=== PATIENT | male | born 1945 | race Caucasian/White ===

== ENCOUNTER → 2023-10-19 11:10 | Outpatient (REF) | payer MEDICARE, BC, SELFPAY ==
[2023-10-19 13:13] LABS: PSA, Total - Diagnostic 2.69 ng/ml (0.0-4.0)
== END ==
LOC: HWLAB 11:10
PROVIDERS: ATTENDING PHYSICIAN Specialist; FAMILY PHYSICIAN Internal Medicine
DX: N40.2 Nodular prostate without lower urinary tract symptoms (principal)
CPT/HCPCS: 36415; 84153

== ENCOUNTER → 2023-11-03 11:23 | Outpatient (REF) | payer MEDICARE, BC, SELFPAY | LOC: CLAB 11:23 | PROVIDERS: ATTENDING PHYSICIAN Specialist | DX: N40.2 Nodular prostate without lower urinary tract symptoms (principal) | CPT/HCPCS: 88305; 88344 ==

== ENCOUNTER → 2023-12-24 08:27 | Outpatient (REF) | payer MEDICARE, BC, SELFPAY | LOC: MRI 3T 08:27 | PROVIDERS: ATTENDING PHYSICIAN Radiology Radiation Oncology; FAMILY PHYSICIAN Internal Medicine | DX: C61 Malignant neoplasm of prostate (principal) | CPT/HCPCS: 72197; A9575 ==

== ENCOUNTER → 2023-12-30 09:28 | Outpatient (REF) | payer MEDICARE, BC, SELFPAY | LOC: HWRAD 09:28 | PROVIDERS: ATTENDING PHYSICIAN Radiology Radiation Oncology; FAMILY PHYSICIAN Internal Medicine | DX: C61 Malignant neoplasm of prostate (principal); M81.0 Age-related osteoporosis without current pathological fracture | CPT/HCPCS: 77080 ==

== ENCOUNTER → 2024-02-02 09:05 | Outpatient (REF) | payer MEDICARE, BC, SELFPAY ==
[2024-02-02 12:09] LABS: % Basophils 0.4 % (0-2); % Eosinophils 2.3 % (0-6); % Immature Granulocytes 0.2 % (0-0.5); % Lymphocytes 29.1 % (20.5-51.1); % Monocytes 11.1 % (1.7-9.3); % Neutrophils 56.9 % (42.2-75.2); Absolute Eosinophils 0.1 10^3/uL (0-0.7); Absolute Lymphocytes 1.6 10^3/uL (1.2-3.4); Absolute Monocytes 0.6 10^3/uL (0.1-0.6); Hematocrit 40.3 % (39.0-52.0); Hemoglobin 14.5 g/dL (13.0-18.0); Mean Corpuscular Hgb 32.3 pg (27.0-31.0); Mean Corpuscular Volume 89.8 fL (80.0-94.0); Mean Platelet Volume 10.2 fL (7.4-10.4); Nucleated Red Blood Cells % 0 % (-); Platelet Count 240 10^3/uL (130-400); Red Blood Cell Count 4.49 10^6/uL (4.70-6.10); White Blood Cell Count 5.3 10^3/uL (4.8-10.8)
[2024-02-02 12:27] LABS: ALT (SGPT) 24 U/L (0-50); AST (SGOT) 27 U/L (17-59); Albumin 4.7 g/dl (3.5-5.0); Alkaline Phosphatase 89 U/L (38-126); Blood Urea Nitrogen 13 mg/dl (9-20); Calcium 9.8 mg/dl (8.4-10.2); Carbon Dioxide 29 mmol/L (22-30); Chloride 102 mmol/L (98-107); Glucose 98 mg/dl (70-99); Potassium 3.8 mmol/L (3.5-5.1); Sodium 139 mmol/L (135-145); Total Bilirubin 0.6 mg/dl (0.2-1.3); eGFR > 60.00
[2024-02-02 12:42] LABS: Vitamin D, 25-OH*** 57.2 ng/mL (30-80)
[2024-02-02 12:56] LABS: TSH Reflex To Free T4 1.36 uIU/ml (0.47-4.68)
[2024-02-03 19:29] LABS: Hepatitis B Surface Antigen Negative (Negative)
[2024-02-03 19:48] LABS: Hepatitis B Core Ab, Total Reactive (Negative); Hepatitis B Surface Antibody Negative; Hepatitis C Antibody Negative (Negative)
[2024-02-03 19:54] LABS: Hepatitis A Antibody, Total Positive (Negative)
== END ==
LOC: HWLAB 09:05
PROVIDERS: ATTENDING PHYSICIAN Internal Medicine Gastroenterology; FAMILY PHYSICIAN Internal Medicine; REFERRING PHYSICIAN Internal Medicine Endocrinology, Diabetes & Metabolism
DX: K76.0 Fatty (change of) liver, not elsewhere classified (principal); E78.5 Hyperlipidemia, unspecified; I10 Essential (primary) hypertension; R13.10 Dysphagia, unspecified; Z00.00 Encounter for general adult medical examination without abnormal findings; Z23 Encounter for immunization; K21.9 Gastro-esophageal reflux disease without esophagitis; E03.9 Hypothyroidism, unspecified; E04.1 Nontoxic single thyroid nodule; G47.00 Insomnia, unspecified; E06.3 Autoimmune thyroiditis; E55.9 Vitamin D deficiency, unspecified; E78.00 Pure hypercholesterolemia, unspecified
CPT/HCPCS: 36415; 80053; 82306; 84443; 85025; 86704; 86706; 86708; 86803; 87340

== ENCOUNTER → 2024-02-16 11:01 | Outpatient (REF) | payer MEDICARE, BC, SELFPAY ==
[2024-02-16 16:04] LABS: % Basophils 0.3 % (0-2); % Eosinophils 1.7 % (0-6); % Immature Granulocytes 0.3 % (0-0.5); % Lymphocytes 27.4 % (20.5-51.1); % Monocytes 10.2 % (1.7-9.3); % Neutrophils 60.1 % (42.2-75.2); Absolute Eosinophils 0.1 10^3/uL (0-0.7); Absolute Lymphocytes 1.6 10^3/uL (1.2-3.4); Absolute Monocytes 0.6 10^3/uL (0.1-0.6); Absolute Neutrophils 3.5 10^3/uL (1.4-6.5); Hematocrit 36.5 % (39.0-52.0); Hemoglobin 13.3 g/dL (13.0-18.0); Mean Corp Hgb Conc. 36.4 g/dL (33.0-37.0); Mean Corpuscular Hgb 32.8 pg (27.0-31.0); Mean Corpuscular Volume 90.1 fL (80.0-94.0); Mean Platelet Volume 10.6 fL (7.4-10.4); Nucleated Red Blood Cells % 0 % (-); Platelet Count 242 10^3/uL (130-400); Red Blood Cell Count 4.05 10^6/uL (4.70-6.10); White Blood Cell Count 5.9 10^3/uL (4.8-10.8)
[2024-02-16 16:10] LABS: Magnesium 2.1 mg/dl (1.6-2.3)
[2024-02-18 16:12] LABS: CTx 488 pg/mL (118-776)
== END ==
LOC: HWLAB 11:01
PROVIDERS: ATTENDING PHYSICIAN Internal Medicine Endocrinology, Diabetes & Metabolism; FAMILY PHYSICIAN Internal Medicine
DX: E04.1 Nontoxic single thyroid nodule (principal); E03.9 Hypothyroidism, unspecified; E06.3 Autoimmune thyroiditis; E55.9 Vitamin D deficiency, unspecified; E78.00 Pure hypercholesterolemia, unspecified; I10 Essential (primary) hypertension; M81.0 Age-related osteoporosis without current pathological fracture; C61 Malignant neoplasm of prostate
CPT/HCPCS: 36415; 82523; 83735; 84155; 84165; 85025

== ENCOUNTER → 2024-03-13 06:19 | Day surgery (SDC) | payer MEDICARE, BC, SELFPAY | LOC: GI 06:19 | PROVIDERS: ATTENDING PHYSICIAN Internal Medicine Gastroenterology; FAMILY PHYSICIAN Internal Medicine | DX: R12 Heartburn (principal); K29.70 Gastritis, unspecified, without bleeding; K21.00 Gastro-esophageal reflux disease with esophagitis, without bleeding | CPT/HCPCS: 43239; 88305; 88312; 88342 ==

== ENCOUNTER → 2024-06-19 11:45 | Outpatient (REF) | payer MEDICARE, BC, SELFPAY ==
[2024-06-19 15:36] LABS: Urine Albumin Negative (Neg - Trace); Urine Bilirubin Negative (Negative); Urine Character Clear (Clear); Urine Color Yellow; Urine Glucose Negative (Negative); Urine Ketone Negative (Negative); Urine Leukocyte Negative (Negative); Urine Nitrite Negative (Negative); Urine Occult Blood Negative (Negative); Urine Specific Gravity 1.015 (<1.030); Urine Urobilinogen Negative (Neg - 1+)
== END ==
LOC: HWLAB 11:45
PROVIDERS: ATTENDING PHYSICIAN Physician Assistant; FAMILY PHYSICIAN Internal Medicine
DX: C61 Malignant neoplasm of prostate (principal)
CPT/HCPCS: 36415; 81003; 84153

== ENCOUNTER 2024-07-05 13:57 | Emergency (ER) | payer MEDICARE, BC, SELFPAY ==
[2024-07-05 13:58] VITALS: BP 90/60
--- NOTE | 2024-07-05 14:04 | ED.GENMED ---
ED Provider Triage
<Buddy Camarillo PA-C - Last Filed: 07/05/24 14:11>
-
Patient seen by provider in Triage?: Seen in Triage
79-year-old male presents via EMS from home. He took 2 500mg tablets of Cipro for a preprocedure tooth extraction. Shortly after that he started vomiting and having diarrhea. He notes he is feeling very lightheaded he denies abdominal pain or
chest pain. He did not receive a tooth extraction. He states he feels very weak
Patient is slightly pale and hypotensive at triage. He is nauseous currently. Unable to obtain temperature at triage. Recommended he go to a room for his hypotension. Labs and fluids ordered as well as Zofran
Patient received a medical screening examination through triage by a healthcare provider. He warrants further assessment
History of Present Illness
<Buddy Camarillo PA-C - Last Filed: 07/05/24 14:11>
General
Chief Complaint: Abdominal Symptoms
Time Seen by Provider: 07/05/24 15:13
<Chad Zamora Jr., PA-C - Last Filed: 07/06/24 08:21>
General
Source: patient and spouse
Exam Limitations: none
Nursing documentation reviewed up to this point in time: agreed with
History of Present Illness
History of Present Illness:
79-year-old male past medical history of hypertension and fatty liver presenting to the emergency department today with concerns of nausea vomiting diarrhea starting earlier today. Took 1 dose of an antibiotic due to upcoming root canal but
otherwise denies any additional potential inciting events. Was feeling some lightheadedness prior to arrival as well. .
Review of Systems
<Chad Zamora Jr., PA-C - Last Filed: 07/06/24 08:21>
Review of Systems
Allergies reviewed?: Yes
All Other Systems: ROS reviewed and negative except as documented in HPI and ROS
Phy Exam
<Chad Zamora Jr., PA-C - Last Filed: 07/06/24 08:21>
Physical Exam
Physical Exam:
GENERAL: Alert , in no apparent distress
EYE: pupils equal and reactive
NECK: Supple, no significant adenopathy.
ENT: o/p clr, mmm.
CARDIAC: Regular rate and rhythm .
LUNGS: Clear breath sounds bilaterally, no acute respiratory distress, no wheezes/rales/rhonchi
ABDOMEN: Soft, without focal tenderness, no r/g, no cvat
NEUROLOGICAL: Alert and oriented, no focal neuro deficits
SKIN: Warm and dry, skin intact.
MUSCULOSKELETAL: No edema, well perfused.
PSYCH: Normal and appropriate interaction.
Course
<Buddy Camarillo PA-C - Last Filed: 07/05/24 14:11>
Orders/Labs/Results
Orders:
Orders
07/05/24 14:03
0.9% Sodium Chloride 1000 ml [Nss] 1,000 ml IV BOLUS
Ondansetron Injectable [Zofran] 4 mg IV NOW STA
07/05/24 14:10
Electrocardiogram (*1) Urgent
Reason for Study: Syncope
EKG- Treatment ONCE
07/05/24 14:40
Ondansetron Injectable [Zofran] 4 mg .ROUTE .STK-MED ONE
07/05/24 14:45
COVID-19 Antigen Urgent
Source: Nasal Swab
Complete Blood Count/With Diff Urgent
Comprehensive Metabolic Panel Urgent
Lipase Urgent
Influenza A+B Rapid Molecular Urgent
LUKAS Source: Nasal Swab
Specimen Description:
07/05/24 16:16
0.9% Sodium Chloride 500 ml [Nss] 500 ml IV BOLUS
Famotidine [Pepcid] 20 mg IV NOW STA
Ondansetron Injectable [Zofran] 4 mg IV NOW STA
Abnormal Lab Results
07/05/24
14:45
WBC 11.7 H 10^3/uL
(4.8-10.8)
MCH 32.1 H pg
(27.0-31.0)
Abs Immat Gran (auto) 0.1 H 10^3/uL
(0-0.05)
Absolute Neuts (auto) 11.2 H 10^3/uL
(1.4-6.5)
Absolute Lymphs (auto) 0.1 L 10^3/uL
(1.2-3.4)
Neutrophils % 95.7 H %
(42.2-75.2)
Lymphocytes % 1.1 L %
(20.5-51.1)
Chloride 97 L mmol/L
(98-107)
Glucose 135 H mg/dl
(70-99)
Total Protein 8.8 H g/dl
(6.3-8.2)
Albumin 5.4 H g/dl
(3.5-5.0)
07/05/24 14:45
07/05/24 14:45
Vital Signs
Initial and Last Documented VS:
Initial Vital Signs
Pulse Resp BP Pulse Ox
61 16 90/60 100
07/05/24 13:58 07/05/24 13:58 07/05/24 13:58 07/05/24 13:58
Last Documented Vital Signs
Temp Pulse Resp BP Pulse Ox
98.8 F 85 23 104/67 98
07/05/24 15:00 07/05/24 17:08 07/05/24 17:08 07/05/24 17:08 07/05/24 17:08
<Chad Zamora Jr., TESS - Last Filed: 07/06/24 08:21>
Orders/Labs/Results
Orders:
Orders
07/05/24 14:03
0.9% Sodium Chloride 1000 ml [Nss] 1,000 ml IV BOLUS
Ondansetron Injectable [Zofran] 4 mg IV NOW STA
07/05/24 14:10
Electrocardiogram (*1) Urgent
Reason for Study: Syncope
EKG- Treatment ONCE
07/05/24 14:40
Ondansetron Injectable [Zofran] 4 mg .ROUTE .STK-MED ONE
07/05/24 14:45
COVID-19 Antigen Urgent
Source: Nasal Swab
Complete Blood Count/With Diff Urgent
Comprehensive Metabolic Panel Urgent
Lipase Urgent
Influenza A+B Rapid Molecular Urgent
LUKAS Source: Nasal Swab
Specimen Description:
07/05/24 16:16
0.9% Sodium Chloride 500 ml [Nss] 500 ml IV BOLUS
Famotidine [Pepcid] 20 mg IV NOW STA
Ondansetron Injectable [Zofran] 4 mg IV NOW STA
Abnormal Lab Results
07/05/24
14:45
WBC 11.7 H 10^3/uL
(4.8-10.8)
MCH 32.1 H pg
(27.0-31.0)
Abs Immat Gran (auto) 0.1 H 10^3/uL
(0-0.05)
Absolute Neuts (auto) 11.2 H 10^3/uL
(1.4-6.5)
Absolute Lymphs (auto) 0.1 L 10^3/uL
(1.2-3.4)
Neutrophils % 95.7 H %
(42.2-75.2)
Lymphocytes % 1.1 L %
(20.5-51.1)
Chloride 97 L mmol/L
(98-107)
Glucose 135 H mg/dl
(70-99)
Total Protein 8.8 H g/dl
(6.3-8.2)
Albumin 5.4 H g/dl
(3.5-5.0)
07/05/24 14:45
07/05/24 14:45
Vital Signs
Initial and Last Documented VS:
Initial Vital Signs
Pulse Resp BP Pulse Ox
61 16 90/60 100
07/05/24 13:58 07/05/24 13:58 07/05/24 13:58 07/05/24 13:58
Last Documented Vital Signs
Temp Pulse Resp BP Pulse Ox
98.8 F 85 23 104/67 98
07/05/24 15:00 07/05/24 17:08 07/05/24 17:08 07/05/24 17:08 07/05/24 17:08
<Janice Combs Day, DRUG AND ALCOHOL COUNSELOR - Last Filed: 07/05/24 21:00>
Orders/Labs/Results
Orders:
Orders
07/05/24 14:03
0.9% Sodium Chloride 1000 ml [Nss] 1,000 ml IV BOLUS
Ondansetron Injectable [Zofran] 4 mg IV NOW STA
07/05/24 14:10
Electrocardiogram (*1) Urgent
Reason for Study: Syncope
EKG- Treatment ONCE
07/05/24 14:40
Ondansetron Injectable [Zofran] 4 mg .ROUTE .STK-MED ONE
07/05/24 14:45
COVID-19 Antigen Urgent
Source: Nasal Swab
Complete Blood Count/With Diff Urgent
Comprehensive Metabolic Panel Urgent
Lipase Urgent
Influenza A+B Rapid Molecular Urgent
LUKAS Source: Nasal Swab
Specimen Description:
07/05/24 16:16
0.9% Sodium Chloride 500 ml [Nss] 500 ml IV BOLUS
Famotidine [Pepcid] 20 mg IV NOW STA
Ondansetron Injectable [Zofran] 4 mg IV NOW STA
Abnormal Lab Results
07/05/24
14:45
WBC 11.7 H 10^3/uL
(4.8-10.8)
MCH 32.1 H pg
(27.0-31.0)
Abs Immat Gran (auto) 0.1 H 10^3/uL
(0-0.05)
Absolute Neuts (auto) 11.2 H 10^3/uL
(1.4-6.5)
Absolute Lymphs (auto) 0.1 L 10^3/uL
(1.2-3.4)
Neutrophils % 95.7 H %
(42.2-75.2)
Lymphocytes % 1.1 L %
(20.5-51.1)
Chloride 97 L mmol/L
(98-107)
Glucose 135 H mg/dl
(70-99)
Total Protein 8.8 H g/dl
(6.3-8.2)
Albumin 5.4 H g/dl
(3.5-5.0)
07/05/24 14:45
07/05/24 14:45
Vital Signs
Initial and Last Documented VS:
Initial Vital Signs
Pulse Resp BP Pulse Ox
61 16 90/60 100
07/05/24 13:58 07/05/24 13:58 07/05/24 13:58 07/05/24 13:58
Last Documented Vital Signs
Temp Pulse Resp BP Pulse Ox
98.8 F 85 23 104/67 98
07/05/24 15:00 07/05/24 17:08 07/05/24 17:08 07/05/24 17:08 07/05/24 17:08
<Chad Zamora Jr., TESS - Last Filed: 07/06/24 08:21>
MDM/Problems Addressed
MDM/Problems Addressed:
79-year-old male past medical history of hypertension and fatty liver presenting to the emergency department today with concerns of nausea vomiting diarrhea starting earlier today. Took 1 dose of an antibiotic due to upcoming root canal but
otherwise denies any additional potential inciting events. Was feeling some lightheadedness prior to arrival as well. On arrival here blood pressure 90/60. Was given fluids and Zofran improvement of blood pressure in 2 100s over 60s. Labs
showing slight white count otherwise no emergent findings on labs. Significant improvement of symptoms after Zofran and fluids.
<Janice Negron DRUG AND ALCOHOL COUNSELOR - Last Filed: 07/05/24 21:00>
MDM/Problems Addressed
MDM/Problems Addressed:
79-year-old male past medical history of hypertension and fatty liver presenting to the emergency department today with concerns of nausea vomiting diarrhea starting earlier today. Took 1 dose of an antibiotic due to upcoming root canal but
otherwise denies any additional potential inciting events. Was feeling some lightheadedness prior to arrival as well. On arrival here blood pressure 90/60. Was given fluids and Zofran improvement of blood pressure in 2 100s over 60s. Labs
showing slight white count otherwise no emergent findings on labs. Significant improvement of symptoms after Zofran and fluids.
6:00 PM:
Patient has been ambulating well, had another bout of diarrhea, he states he feels better but still weak.
He is tolerating juan carlos srini and states he is comfortable going home
He has Imodium at home
<Janice Negron DRUG AND ALCOHOL COUNSELOR - Last Filed: 07/05/24 21:00>
*Critical Care Note
Total Time (30-74mins, 75-104mins- exclusive of procedures): Not Applicable
ED Attending Note
<Buddy Camarillo PA-C - Last Filed: 07/05/24 14:11>
-
Portions of this chart may have been created with voice recognition software.� Occasional wrong word or��sound alike� substitutions may have occurred due to the inherent limitations of voice recognition software.
Discharge Plan
Departure
Patient Disposition: Home (Routine Discharge)
Date of Disposition: 07/05/24
Time of Disposition: 18:17
Patient with high blood pressure during this ER visit?: No
Condition: Good
Covid-19: Not Applicable
Discharge Problem:
Nausea, vomiting and diarrhea
Instructions: Nausea and Vomiting, Adult (DC)
Prescriptions:
New
ondansetron 4 mg tablet,disintegrating
4 mg PO Q6H PRN (Reason: nausea and vomiting) Qty: 7 0RF
Referrals:
Kimberli Sequeira DO [Family Provider] -
Activity Restrictions/Additional Instructions:
You came to the emergency department today with concerns of nausea vomiting diarrhea. This is likely related to a stomach bug. Take the prescribed medication and Imodium over the next few days and return for any worsening or progressive symptoms.
Otherwise try to stay hydrated and rest over the next few days as symptoms will hopefully be improving.
Interventions
Interventions:
*Risk Screen - Suicide Last Done: 07/05/24 13:58
*General Assessment Last Done: 07/05/24 13:58
*Neglect/Abuse Screening Last Done: 07/05/24 14:38
ED- Fall Risk Assessment Last Done: 07/05/24 15:18
*ED COVID-19 Vaccine History Last Done: 07/05/24 13:58
*Nursing Disposition Last Done: 07/05/24 18:26
PE-Sbglyz-Plhiucjpqb Assessment Last Done: 07/05/24 14:38
Discharge Date and Time
Discharge Date/Time: 07/05/24 18:31
Print Language: MOSOTHO
[2024-07-05 14:37] VITALS: BMI 27.2
[2024-07-05] MEDS: ZOFRAN 4 MG IV ×2 (14:41→16:21)
[2024-07-05] MEDS: NSS 1000 IV (14:42)
[2024-07-05 15:00] LABS: % Basophils 0.3 % (0-2); % Eosinophils 0.2 % (0-6); % Immature Granulocytes 0.5 % (0-0.5); % Lymphocytes 1.1 % (20.5-51.1); % Monocytes 2.2 % (1.7-9.3); % Neutrophils 95.7 % (42.2-75.2); Absolute Immature Granulocytes 0.1 10^3/uL (0-0.05); Absolute Lymphocytes 0.1 10^3/uL (1.2-3.4); Absolute Monocytes 0.3 10^3/uL (0.1-0.6); Absolute Neutrophils 11.2 10^3/uL (1.4-6.5); Hematocrit 48.8 % (39.0-52.0); Hemoglobin 17.2 g/dL (13.0-18.0); Mean Corp Hgb Conc. 35.2 g/dL (33.0-37.0); Mean Corpuscular Hgb 32.1 pg (27.0-31.0); Mean Platelet Volume 9.6 fL (7.4-10.4); Nucleated Red Blood Cells % 0 % (-); Platelet Count 282 10^3/uL (130-400); Red Blood Cell Count 5.36 10^6/uL (4.70-6.10); Red Cell Dist. Width 11.9 % (11.5-14.5); White Blood Cell Count 11.7 10^3/uL (4.8-10.8)
[2024-07-05 15:10] LABS: ALT (SGPT) 27 U/L (0-50); AST (SGOT) 32 U/L (17-59); Albumin 5.4 g/dl (3.5-5.0); Alkaline Phosphatase 68 U/L (38-126); Blood Urea Nitrogen 18 mg/dl (9-20); Calcium 9.9 mg/dl (8.4-10.2); Carbon Dioxide 26 mmol/L (22-30); Chloride 97 mmol/L (98-107); Estimated Creatinine Clearance 59 ml/min; Glucose 135 mg/dl (70-99); Lipase 121 U/L (23-300); Potassium 3.6 mmol/L (3.5-5.1); Sodium 139 mmol/L (135-145); Total Bilirubin 0.8 mg/dl (0.2-1.3); Total Protein 8.8 g/dl (6.3-8.2); eGFR > 60.00
[2024-07-05 15:11] LABS: COVID-19 Antigen Negative (Negative)
[2024-07-05] MEDS: PEPCID 20 MG IV (16:21)
[2024-07-05] MEDS: NSS 500 IV (16:22)
[2024-07-05 16:27] VITALS: BP 100/66
[2024-07-05 17:08] VITALS: BP 104/67
== END 2024-07-05 18:31 | disposition home or self-care (01) ==
LOC: EMR 13:57
PROVIDERS: Physician Assistant; EMERGENCY PHYSICIAN Student in an Organized Health Care Education/Training Program; FAMILY PHYSICIAN Internal Medicine
DX: R11.2 Nausea with vomiting, unspecified (principal); R19.7 Diarrhea, unspecified; I10 Essential (primary) hypertension
CPT/HCPCS: 96374; 96375; 96376; 96361; 99284; 80053; 83690; 85025; 87502; 87811; 93005

== ENCOUNTER → 2024-08-14 09:31 | Outpatient (REF) | payer MEDICARE, BC, SELFPAY ==
[2024-08-14 12:20] LABS: % Basophils 0.2 % (0-2); % Eosinophils 2.4 % (0-6); % Immature Granulocytes 0.2 % (0-0.5); % Lymphocytes 28.1 % (20.5-51.1); % Monocytes 9.8 % (1.7-9.3); % Neutrophils 59.3 % (42.2-75.2); Absolute Eosinophils 0.1 10^3/uL (0-0.7); Absolute Lymphocytes 1.5 10^3/uL (1.2-3.4); Absolute Monocytes 0.5 10^3/uL (0.1-0.6); Absolute Neutrophils 3.3 10^3/uL (1.4-6.5); Hematocrit 40.2 % (39.0-52.0); Hemoglobin 13.5 g/dL (13.0-18.0); Mean Corp Hgb Conc. 33.6 g/dL (33.0-37.0); Mean Corpuscular Volume 95.3 fL (80.0-94.0); Mean Platelet Volume 9.7 fL (7.4-10.4); Nucleated Red Blood Cells % 0 % (-); Platelet Count 218 10^3/uL (130-400); Red Blood Cell Count 4.22 10^6/uL (4.70-6.10); Red Cell Dist. Width 12.2 % (11.5-14.5); White Blood Cell Count 5.5 10^3/uL (4.8-10.8)
[2024-08-14 12:49] LABS: ALT (SGPT) 19 U/L (0-50); AST (SGOT) 23 U/L (17-59); Albumin 4.3 g/dl (3.5-5.0); Alkaline Phosphatase 52 U/L (38-126); Blood Urea Nitrogen 13 mg/dl (9-20); Calcium 8.9 mg/dl (8.4-10.2); Carbon Dioxide 34 mmol/L (22-30); Chloride 96 mmol/L (98-107); Glucose 99 mg/dl (70-99); HDL Cholesterol 74 mg/dl; LDL Cholesterol, Calculated 69 mg/dl; Potassium 3.6 mmol/L (3.5-5.1); Sodium 137 mmol/L (135-145); Total Bilirubin 0.5 mg/dl (0.2-1.3); Total Cholesterol 158 mg/dl (50-199); Total Protein 7.2 g/dl (6.3-8.2); Triglyceride 78 mg/dl (10-149); Very Low Density Lipoprotein 15 mg/dl (0-30); eGFR > 60.00
[2024-08-14 13:06] LABS: Vitamin D, 25-OH*** 44.7 ng/mL (30-80)
[2024-08-14 13:33] LABS: TSH Reflex To Free T4 1.25 uIU/ml (0.47-4.68)
== END ==
LOC: HWLAB 09:31
PROVIDERS: ATTENDING PHYSICIAN Internal Medicine Endocrinology, Diabetes & Metabolism; FAMILY PHYSICIAN Internal Medicine
DX: I10 Essential (primary) hypertension (principal); E78.5 Hyperlipidemia, unspecified; R13.10 Dysphagia, unspecified; K21.9 Gastro-esophageal reflux disease without esophagitis; E03.9 Hypothyroidism, unspecified; Z85.819 Personal history of malignant neoplasm of unspecified site of lip, oral cavity, and pharynx; E04.1 Nontoxic single thyroid nodule; E06.3 Autoimmune thyroiditis; E55.9 Vitamin D deficiency, unspecified; E78.00 Pure hypercholesterolemia, unspecified; M81.0 Age-related osteoporosis without current pathological fracture; C61 Malignant neoplasm of prostate
CPT/HCPCS: 36415; 80053; 80061; 82306; 84443; 85025

== ENCOUNTER → 2025-01-02 10:21 | Outpatient (REF) | payer MEDICARE, BC, SELFPAY ==
[2025-01-02 12:55] LABS: PSA, Total - Diagnostic < 0.06 ng/ml (0.0-4.0)
[2025-01-02 12:58] LABS: Testosterone, Total 14.4 ng/dl (72-623)
== END ==
LOC: HWLAB 10:21
PROVIDERS: ATTENDING PHYSICIAN Radiology Radiation Oncology; FAMILY PHYSICIAN Internal Medicine
DX: C61 Malignant neoplasm of prostate (principal)
CPT/HCPCS: 36415; 84153; 84403

== ENCOUNTER → 2025-02-07 09:26 | Outpatient (REF) | payer MEDICARE, BC, SELFPAY ==
[2025-02-07 13:43] LABS: ALT (SGPT) 20 U/L (0-50); AST (SGOT) 21 U/L (17-59); Albumin 4.7 g/dl (3.5-5.0); Alkaline Phosphatase 46 U/L (38-126); Blood Urea Nitrogen 11 mg/dl (9-20); Calcium 9.2 mg/dl (8.4-10.2); Carbon Dioxide 28 mmol/L (22-30); Chloride 102 mmol/L (98-107); Glucose 98 mg/dl (70-99); HDL Cholesterol 69 mg/dl; LDL Cholesterol, Calculated 67 mg/dl; Potassium 3.2 mmol/L (3.5-5.1); Sodium 138 mmol/L (135-145); Total Protein 7.5 g/dl (6.3-8.2); Very Low Density Lipoprotein 16 mg/dl (0-30); eGFR > 60.00
[2025-02-07 14:06] LABS: Vitamin D, 25-OH*** 55.0 ng/mL (30-80)
[2025-02-10 13:02] LABS: CTx 46 pg/mL (118-776)
== END ==
LOC: HWLAB 09:26
PROVIDERS: ATTENDING PHYSICIAN Internal Medicine Endocrinology, Diabetes & Metabolism; FAMILY PHYSICIAN Internal Medicine
DX: E03.9 Hypothyroidism, unspecified (principal); E78.00 Pure hypercholesterolemia, unspecified; E55.9 Vitamin D deficiency, unspecified; M81.0 Age-related osteoporosis without current pathological fracture
CPT/HCPCS: 36415; 80053; 80061; 82306; 82523; 84443

== ENCOUNTER → 2025-02-12 11:04 | Outpatient (REF) | payer MEDICARE, BC, SELFPAY | LOC: HWRAD 11:04 | PROVIDERS: ATTENDING PHYSICIAN Internal Medicine | DX: C61 Malignant neoplasm of prostate (principal); M25.562 Pain in left knee; M54.2 Cervicalgia | CPT/HCPCS: 72050; 73564 ==

== ENCOUNTER → 2025-04-12 10:48 | Outpatient (REF) | payer MEDICARE, BC, SELFPAY | LOC: RAD 10:48 | PROVIDERS: ATTENDING PHYSICIAN Internal Medicine | DX: R20.2 Paresthesia of skin (principal); R25.2 Cramp and spasm | CPT/HCPCS: 93922; 93925 ==

== ENCOUNTER → 2025-04-17 09:29 | Outpatient (REF) | payer MEDICARE, BC, SELFPAY ==
[2025-04-17 12:30] LABS: ALT (SGPT) 22 U/L (0-50); AST (SGOT) 23 U/L (17-59); Albumin 4.9 g/dl (3.5-5.0); Alkaline Phosphatase 49 U/L (38-126); Blood Urea Nitrogen 15 mg/dl (9-20); Calcium 9.0 mg/dl (8.4-10.2); Carbon Dioxide 29 mmol/L (22-30); Chloride 102 mmol/L (98-107); Glucose 94 mg/dl (70-99); Magnesium 2.0 mg/dl (1.6-2.3); Potassium 3.7 mmol/L (3.5-5.1); Sodium 138 mmol/L (135-145); Total Protein 8.0 g/dl (6.3-8.2); eGFR > 60.00
[2025-04-17 13:28] LABS: Vitamin B12 608 pg/ml (239-931)
== END ==
LOC: HWLAB 09:29
PROVIDERS: ATTENDING PHYSICIAN Internal Medicine Endocrinology, Diabetes & Metabolism; FAMILY PHYSICIAN Internal Medicine
DX: R20.2 Paresthesia of skin (principal); E04.1 Nontoxic single thyroid nodule; E03.9 Hypothyroidism, unspecified; E55.9 Vitamin D deficiency, unspecified; E78.00 Pure hypercholesterolemia, unspecified; I10 Essential (primary) hypertension; M81.0 Age-related osteoporosis without current pathological fracture; C61 Malignant neoplasm of prostate; E87.6 Hypokalemia
CPT/HCPCS: 36415; 80053; 82607; 83735; 86780

== ENCOUNTER → 2025-05-03 13:24 | Outpatient (REF) | payer MEDICARE, BC, SELFPAY | LOC: EMG 13:24 | PROVIDERS: ATTENDING PHYSICIAN Internal Medicine | DX: R20.2 Paresthesia of skin (principal); R20.0 Anesthesia of skin | CPT/HCPCS: 95886; 95911 ==

== ENCOUNTER → 2025-05-08 12:41 | Outpatient (REF) | payer MEDICARE, BC, SELFPAY | LOC: SDSPAT 12:41 | PROVIDERS: ATTENDING PHYSICIAN Surgery; FAMILY PHYSICIAN Internal Medicine | DX: K40.91 Unilateral inguinal hernia, without obstruction or gangrene, recurrent (principal); K41.90 Unilateral femoral hernia, without obstruction or gangrene, not specified as recurrent; D17.1 Benign lipomatous neoplasm of skin and subcutaneous tissue of trunk; Z01.818 Encounter for other preprocedural examination | CPT/HCPCS: 36415; 93005 ==

== ENCOUNTER 2025-05-17 06:32 | Day surgery (SDC) | payer MEDICARE, BC, SELFPAY ==
[2025-05-08 13:36] VITALS: BMI 26.0
[2025-05-17] VITALS (10 sets, daily range): BP systolic 95–122; BP diastolic 62–77; BMI 26.0
--- NOTE | 2025-05-17 07:18 | W.SUR.PREOP ---
Pre-Operative Surgical Note
-
I have examined this patient prior to the performance of the scheduled procedure.
The patient's condition is unchanged from the time of the current History and
Physical and the patient is able to undergo the scheduled procedure.
--- NOTE | 2025-05-17 07:18 | HP.FOC2 ---
Focused History & Physical
Chief Complaint
HPI:
Chief Complaint: Recurrent RIGHT inguinal hernia, RLQ ab wall lipoma
HPI / Indication for Planned Procedure: This is a 80M who p/w a symptomatic RIGHT inguinal hernia, RLQ ab wall lipoma. Will plan for a Robotic recurrent right inguinal hernia repair with mesh and excision of a RLQ ab wall lipoma
Relevant Past Medical History: Other (Prostate cancer s/p radiation)
Relevant Social History: Negative
Relevant Family History: Negative
Relevant Past Surgical History: Positive for (Prior open bilateral inguinal hernia repairs with mesh)
Review of Systems
Review of Pertinent Systems: All Systems Negative
Medication
See Medication form for detailed medications: Yes
Medication List (including Herbals & OTC):
acebutolol 200 mg capsule 200 mg PO DAILY 05/10/25
amlodipine 5 mg tablet 5 mg PO BID 05/10/25
atorvastatin 20 mg tablet 20 mg PO DAILY 05/10/25
denosumab 60 mg/mL subcutaneous syringe (Prolia) 60 mg SC [id number] 05/10/25
ergocalciferol (vitamin D2) 1,250 mcg (50,000 unit) capsule 1,250 mcg PO TH 05/10/25
esomeprazole magnesium 20 mg capsule,delayed release (Nexium) 20 mg PO DAILY 05/10/25
gabapentin 100 mg tablet 100 mg PO HS 05/10/25
levothyroxine 88 mcg tablet 88 mcg PO DAILY 05/10/25
losartan 100 mg tablet 100 mg PO DAILY 05/10/25
mirabegron 50 mg tablet,extended release 24 hr (Myrbetriq) 50 mg PO DAILY 05/10/25
tamsulosin 0.4 mg capsule 0.4 mg PO QPM 05/10/25
Medications Reviewed: Yes
Allergies and Reactions
Patient has Allergies: Yes
Noted Allergies and Reactions:
Allergy/AdvReac Type Severity Reaction Status Date / Time
sesame seed Allergy Rash, Verified 05/10/25 09:52
Difficulty
Breathing,
Swelling
Pertinent Physical Exam
All Other Systems: Negative
Head/Neck: Normal
Diagnosis / Assessment
This is a 80M who p/w a symptomatic RIGHT inguinal hernia, RLQ ab wall lipoma.
Plan / Procedure
Will plan for a Robotic recurrent right inguinal hernia repair with mesh and excision of a RLQ ab wall lipoma
Anesthesia/Sedation to be done by Anesthesia Provider: Yes
[2025-05-17] MEDS: TYLENOL 1000 MG PO (08:41)
[2025-05-17] MEDS: NORMOSOL-R/PLASMALYTE-A 1000 IV (08:41)
[2025-05-17] MEDS: DILAUDID 0.5 MG IV (10:40)
--- NOTE | 2025-05-17 10:49 | W.IMMPOSTOP ---
Surgical Immed Post Op Note
-
Primary Surgeon: Jl Elam MD
Assisting Surgeon: None
Pre-op Diagnosis: Recurrent right inguinal hernia, abdominal wall subcutaneous lipoma
Post-op Diagnosis: Recurrent right inguinal hernia, femoral hernia, abdominal wall subcutaneous lipoma
Procedure Performed:
1. Robotic recurrent right inguinal hernia repair with mesh.
2. Right femoral hernia repair
3. Excision of a abdominal wall subcutaneous lipoma
Anesthesia Type: General
Specimen / Cultures: Encapsulated abdominal wall lipoma (9 x 6 x 2 cm)
Estimated Blood Loss: 3 cc
Complications: None
Operative Findings: Very distended bladder despite having the patient urinate prior to surgery. Small recurrent direct inguinal hernia (containing preperitoneal fat from the space of Retzius), small fat-containing femoral hernia, reduced. Small
cord lipoma also reduced. No true indirect component. After achieving the critical view of the n.p.o., the space was reinforced with a large right Bard 3D max mid weight uncoated polypropylene mesh.
--- NOTE | 2025-05-17 10:53 | OR.RPT ---
Operative Report
Operative Report
Patient Name: Jovanny Vigil
: 1945
Date of Operation: 05/17/2025
Pre-op Diagnosis: Recurrent right inguinal hernia, abdominal wall subcutaneous lipoma
Post-op Diagnosis: Recurrent right inguinal hernia, femoral hernia, abdominal wall subcutaneous lipoma
Procedure Performed:
1. Robotic recurrent right inguinal hernia repair with mesh.
2. Right femoral hernia repair
3. Excision of a abdominal wall subcutaneous lipoma
Surgeon(s):
Dr. Elam
Service Coordinator(s):
LUCRECIA Hodgson
Anesthesia: General
Estimated Blood Loss: 3 cc
Urine Output: None
Drains/Lines/Implants: Large 3D Max Bard mid weight uncoated polypropylene mesh
Specimens: Encapsulated abdominal wall lipoma (9 x 6 x 2 cm)
Primary Surgeon: Jl Elam MD
Assisting Surgeon: None
Indication for surgery: The patient has a history of right groin pain in the setting of a prior open right inguinal hernia repair with mesh. On exam no appreciable hernia defect could be identified but on CT imaging a recurrence was noted. The
patient was also noted to have symptomatic right lower quadrant abdominal wall subcutaneous lesion consistent with lipoma. Following review of therapeutic options they have elected to undergo a minimally invasive repair of his hernia as well as
excision of his abdominal wall mass.
Operative Findings: Very distended bladder despite having the patient urinate prior to surgery. Small recurrent direct inguinal hernia (containing preperitoneal fat from the space of Retzius), small fat-containing femoral hernia, reduced. Small
cord lipoma also reduced. No true indirect component. After achieving the critical view of the n.p.o., the space was reinforced with a large right Bard 3D max mid weight uncoated polypropylene mesh.
Details of the operation:
The patient was brought to the Operating Room and placed in the supine position with the arms tucked. IV antibiotics were infused and Venodyne stockings placed. Following uneventful induction of general endotracheal anesthesia, an orogastric tube
was placed. The abdomen was prepped and draped in the usual sterile fashion. The abdomen was entered using a Veress technique which required 1 pass, pneumoperitoneum to 15 mmHg was obtained without difficulty. An 8mm trochar was passed through the
abdominal wall roughly 20 cm cephalad to the inguinal canal. We then confirmed that no inadvertent injury was made while passing the trocar or Veress needle. We then placed two additional 8 mm ports in the left upper and right upper quadrants. We
then docked the robot with a Prograsper in the left hand port and monopolar scissors in the right. No immediate hernia defect could be identified on either side. The bladder was notably distended. We then began by creating a flap at the level of
the ASIS laterally working our way medially to the medial umbilical fold. Staying onto the peritoneum we were able to circumferentially dissect around the hernia sac and and peel it off of the underlying spermatic cord and testicular vessels,
taking care to preserve them. Medially we identified the midline pubis as well as Vinicio's ligament and ensured to dissect 2 cm below the pubic rim over the bladder. After exposure of the entire myopectineal orifice we identified and reduced: A
recurrent small direct defect containing preperitoneal fat from the space of Retzius which was reduced. There was also a small femoral hernia containing fat which was also reduced. There was no indirect component however there was a small cord
lipoma which was reduced.
We then fixated a large 3D max mesh with a 2-0 Vicryl stitch at coopers medially and superior laterally. The flap was then closed with a running 2-0 barbed monocryl suture ensuring that the tail was cut flush with the medial fat pad so that no
barbs were exposed. During the closure of the flap an Angiocath was inserted and 20 cc of quarter percent Marcaine was instilled. The area in the flap cavity was then evacuated of air confirming that the mesh was flush and there were no folds. A
small rent in the peritoneum was noted and closed with 2-0 Vicryl. All needles and instruments were then removed and the robot was undocked. The abdomen was then desufflated, and pneumoperitoneum evacuated. While Judie closed the port sites, I
turned my attention to the right lower quadrant lesion. A 4 cm linear incision was made over the mass and the lipoma was immediately identified just deep to the skin. It was found to be an encapsulated lipoma and carefully dissected from the
surrounding structures. Interestingly I did not track superiorly through a small tunnel in the skin and appeared to be attached to the underlying dermis. The lipoma was carefully dissected off of this without injury to the overlying skin. After
achieving hemostasis, the wound was closed in layers with 3-0 Vicryl suture. All skin sites were then closed with 4-0 Monocryl followed by Dermabond. Counts were correct and overall, the patient tolerated the procedure well and was taken to the
Recovery Room postoperatively in stable condition.
I was the attending physician and performed the procedure with assistance of the PA above. The assistance of LUCRECIA Hodgson was required due to the complexity of the procedure. During the procedure Judie assisted with port placement, instrument
and needle exchanges, and closure of the wounds. I was present for all portions of the case, excluding skin closure.
Jl Elam MD
[2025-05-17] MEDS: DILAUDID 0.25 MG IV (11:00)
== END 2025-05-17 12:58 | disposition home or self-care (01) ==
LOC: SDS 06:32
PROVIDERS: ATTENDING PHYSICIAN Surgery; FAMILY PHYSICIAN Internal Medicine
DX: K40.91 Unilateral inguinal hernia, without obstruction or gangrene, recurrent (principal); K41.90 Unilateral femoral hernia, without obstruction or gangrene, not specified as recurrent; D17.1 Benign lipomatous neoplasm of skin and subcutaneous tissue of trunk
CPT/HCPCS: 49651; 88304; C1781

== ENCOUNTER → 2025-07-10 11:12 | Outpatient (REF) | payer MEDICARE, BC, SELFPAY ==
[2025-07-10 16:45] LABS: PSA, Total - Diagnostic < 0.06 ng/ml (0.0-4.0)
== END ==
LOC: REG 11:12
PROVIDERS: ATTENDING PHYSICIAN Radiology Radiation Oncology; FAMILY PHYSICIAN Internal Medicine
DX: C61 Malignant neoplasm of prostate (principal)
CPT/HCPCS: 36415; 84153; 84403